=== PATIENT | male | born 1965 | race Caucasian/White ===

== ENCOUNTER 2021-11-04 12:22 | Emergency (ER) | payer OTHER ==
[2021-11-04] MEDS ORDERED: Lidocaine 1% 5 ML VIAL INJECT ONE (12:49)
[2021-11-04] MEDS ORDERED: Diphtheria,Pertussis(Acell),Tetanus Vaccine 0.5 ML Syringe IM ONE (14:34)
[2021-11-04] MEDS ORDERED: Bacitracin/Neomycin/Polymyxin B Oint 0.9 GM U/D Packet TOP ONE (14:43)
== END 2021-11-04 15:40 | disposition home or self-care (01) ==
LOC: LL.ED 12:22
DX: S51.812A Laceration without foreign body of left forearm, initial encounter (principal); Z23 Encounter for immunization; W26.8XXA Contact with other sharp object(s), not elsewhere classified, initial encounter
CPT/HCPCS: 12001; 90471; 90715; 99282-25